=== PATIENT | male | born 1960 | race Caucasian/White ===

== ENCOUNTER 2021-11-09 13:56 | Emergency (ER) | payer OTHER, SELFPAY ==
--- NOTE | ~2021-11-09 | US_ITS ---
EXAMINATION: US carotid duplex BI DATE: 11/09/2021 16:49 INDICATION: Visual disturbance. TECHNIQUE: Grayscale, color Doppler, and pulsed Doppler images of the cervical carotid arteries were obtained. The degree of vessel stenosis is placed in one of the following categories: normal, <50%, 5 0-69%, >=70% but less than near-occlusion, near-occlusion, or total occlusion. Note that percent sten osis relative to normal distal artery lumen diameter is indirectly measured from velocity measurement s as described by Nigel, et al. Radiology 2003; [id number]:[id number]. Notes: Normal: Peak systolic velocity <125 centimeters/sec and no plaque <50%. Peak systolic velocity <125 ( EDV <40; ICA/CCA PSV ratio <2.0; used these factors only a tandem lesions or low cardiac output or co ntralateral disease) 50-69 %: PSV 125-230 (EDV 40-100; ratio 2-4) >= 70% but less than near occlusion: PSV greater than 230 (EDV > 100; ratio> 4.0) Near Occlusion: PSV that is variable; markedly narrowed lumen Occlusion: Absent flow on color/spectral Doppler and no lumen on perez scale. COMPARISON: None. FINDINGS: RIGHT: The right common carotid artery (CCA) peak systolic velocity (PSV) is 89 cm/s. The right internal car otid artery (ICA) PSV is 47 cm/s. The right ICA end-diastolic velocity (EDV) is 12 cm/s. The right IC A/CCA PSV ratio is 0.5. The external carotid artery (ECA) PSV is 97 cm/s. There is antegrade flow in the right vertebral artery. LEFT: The left CCA PSV is 91 cm/s. The left ICA PSV is 76 cm/s. The left ICA EDV is 26 cm/s. The left ICA/C CA PSV ratio is 0.8. The ECA PSV is 58 cm/s. There is antegrade flow in the left vertebral artery. IMPRESSION: 1. Less than 50% stenosis in the right internal carotid artery by sonographic criteria. 2. Less than 50% stenosis in the left internal carotid artery by sonographic criteria. Reviewed, dictated and finalized at location A. IMPRESSION: 1. Less than 50% stenosis in the right internal carotid artery by sonographic nani ruby. 2. Less than 50% stenosis in the left internal carotid artery by sonographic clay granger.
--- NOTE | ~2021-11-09 | CT_ITS ---
EXAMINATION: CT facial & cervical spine wo DATE: 11/09/2021 14:36 INDICATION: head injury TECHNIQUE: Computed tomography (CT) of the maxillofacial region and cervical spine was performed with out intravenous contrast. Automated exposure control and iterative reconstruction technique were empl oyed. The dose-length product was 421.35 mGy-cm. COMPARISON: None FINDINGS: CERVICAL: Counting reference: Craniocervical junction. There are seven cervical type vertebral bodies.. Anatomic Variants: None. Vertebral Body Alignment: Straightening, otherwise intact. Craniocervical junction: Moderate degenerative change. Alignment intact. Osseous structures/fracture: No evidence of a lytic or blastic process in the visualized spine. N o evidence of acute fracture. Cervical soft tissues: The paraspinal soft tissues planes are maintained. Degenerative changes: Severe degenerative disc disease at C5-6 and C6-7, with severe bilateral neural foraminal narrowing and moderate central canal narrowing. Ankylosis at C6-7. FACE: Soft Tissues: No significant superficial soft tissue swelling. Facial bones: No acute fracture. No lytic or blastic process. Eyes: The globes are intact. The soft tissue planes of the orbits are maintained. Paranasal Sinuses: Mild inferior right maxillary mucosal thickening, otherwise the aerated spaces ar e clear. Foreign Bodies: No radiopaque foreign bodies. Other Findings: None. IMPRESSION: No acute fracture or traumatic malalignment in the cervical spine. No acute facial bone fracture. Reviewed, dictated and finalized at location K. IMPRESSION: No acute fracture or traumatic malalignment in the cervical spine. No acute fac ial bone fracture.
--- NOTE | ~2021-11-09 | CT_ITS ---
EXAMINATION: CT brain wo con DATE: 11/09/2021 14:36 INDICATION: head injury . TECHNIQUE: Computed tomography (CT) of the head was performed without intravenous contrast. The mA wa s adjusted according to patient size. Iterative reconstruction technique was employed. The dose-lengt h product was 605.33 mGy-cm. COMPARISON: None FINDINGS: No acute intracranial hemorrhage or extra-axial fluid collection. No hydrocephalus, mass, or herniation. No acute ischemic infarct. Unremarkable dural venous sinus attenuation. No acute osseous abnormality. The aerated spaces are clear. Mild atrophy and chronic white matter change. Atherosclerotic intracranial calcifications. IMPRESSION: No acute intracranial process. Reviewed, dictated and finalized at location K.
[2021-11-09 13:58] VITALS: BP 151/85; PULSE 80; RESP 16; TEMP 36.1; O2SAT 98
--- NOTE | 2021-11-09 14:24 | ED.GENADULT ---
HPI - General Adult General Chief complaint: Eye Problems Stated complaint: blurred vision in left eye Time Seen by Provider: 11/09/21 14:09 History of Present Illness HPI narrative: 61-year-old male presents to the emergency room from his [facility] for further evaluation of blurred vision in his left eye. Patient states he woke up this morning complaining of centralized blurry vision. Patient denies floaters, or loss of peripheral vision. Patient states he was seen at his [facility] [place] office earlier today, and was encouraged to come to the emergency room for further evaluation for neuroimaging. Patient states about a week ago he hit the back of his head behind his left ear. Denies LOC or altered mental status at that time. Patient denies any tinnitus, hearing changes. Patient denies taking any blood thinners. Patient denies any alleviating or aggravating factors of his blurry vision. Related Data Allergies Allergy/AdvReac Type Severity Reaction Status Date / Time No Known Allergies Allergy Mild Verified 11/09/21 14:13 Review of Systems Review of Systems: CONSTITUTIONAL: Denies fever, chills, or sweats. EYES: Reports central vision changes ENT: Denies rhinorrhea, congestion, sore throat, or otalgia. CARDIOVASCULAR: Denies chest pain, palpitations, or edema. RESPIRATORY: Denies cough or dyspnea. GASTROINTESTINAL: Denies abdominal pain, nausea, vomiting, or diarrhea. GENITOURINARY: Denies dysuria or hematuria. SKIN: Denies rash or itching. MUSCULOSKELETAL: Reports skull tenderness over the left mastoid process NEUROLOGIC: Denies headache, numbness, dizziness, or weakness. PSYCHIATRIC: Denies anxiety or depression. [facility] Family History Family History Father Diabetes mellitus Laryngeal cancer Social History Social History Smoking status: Never smoker Second hand tobacco smoke exposure: No Alcohol intake: current Drinks per week: 2 Substance use: never Substance use type: does not use Gender identity (if verbalized by the patient): Male Sexual Orientation (if Verbalized by the Patient): Straight or Heterosexual Spiritual care concerns: No Agree to blood products: Yes Exam Narrative: GENERAL: Well-appearing, well-nourished, and in no acute distress. HEAD: Normocephalic, atraumatic. Tenderness to the left mastoid process, no ecchymosis, no soft tissue swelling, no bony abnormality EYES: PERRLA and EOMI. ENT: Nares clear, no rhinorrhea or epistaxis. Mucous membranes moist. Oropharynx without tonsillar hypertrophy exudate or other lesions. Bilateral TMs pearly perez nonbulging NECK: Supple. No adenopathy or masses. No carotid bruits or JVD CHEST: Clear to auscultation. No respiratory distress. No wheezes rales or rhonchi HEART: Regular rate and rhythm. No murmur heard. Normal peripheral pulses. EXTREMITIES: Normal range of motion. No edema. SKIN: Warm, dry, no rash. NEURO: No focal deficits. Alert and oriented x3. PSYCH: Normal mood and affect. Course Course Emergency Course: 1529: Discussed case with Dr. Thompson, [place]. She is requesting a carotid ultrasound study. Vital Signs Vital signs: Vital Signs Temperature 36.1 C L 11/09/21 13:58 Pulse Rate 80 11/09/21 13:58 Respiratory Rate 16 11/09/21 13:58 Blood Pressure 151/85 H 11/09/21 13:58 Pulse Oximetry 98 11/09/21 13:58 Temperature 36.1 C L 11/09/21 13:58 Pulse Rate 80 11/09/21 13:58 Respiratory Rate 16 11/09/21 13:58 Blood Pressure 151/85 H 11/09/21 13:58 Pulse Oximetry 98 11/09/21 13:58 Medical Decision Making Vital Signs Vital Signs: Vital Signs Temperature 36.1 C L 11/09/21 13:58 Pulse Rate 80 11/09/21 13:58 Respiratory Rate 16 11/09/21 13:58 Blood Pressure 151/85 H 11/09/21 13:58 Pulse Oximetry 98 11/09/21 13:58 Temperature 36.1 C L 11/09
== END 2021-11-09 17:09 | disposition home or self-care (01) ==
PROVIDERS: Emergency Provider Nurse Practitioner Family; PCP Family Medicine Adolescent Medicine
DX: H53.8 Other visual disturbances (principal)
CPT/HCPCS: 70450; 70486; 72125; 93880; 99284

== ENCOUNTER → 2023-01-21 09:25 | Outpatient (CLI) | payer OTHER, SELFPAY ==
--- NOTE | ~2023-01-21 | XR_ITS ---
AP view of the pelvis and AP and lateral views of the left hip Clinical history: Pain Findings: No acute fracture or dislocation is seen. Osseous alignment is anatomic. There is minimal d egenerative spurring at the superolateral acetabular margin. Soft tissues are unremarkable. Impression: Minimal degenerative spurring at superolateral acetabular margin. Reviewed, dictated and finalized at [facility]. Impression: Minimal degenerative spurring at superolateral acetabular margin.
--- NOTE | ~2023-01-21 | XR_ITS ---
AP and lateral views of the left tibia/fibula Clinical History: Injury Findings: No acute fracture or dislocation is seen. Osseous alignment is anatomic. Joint spaces are p reserved without significant erosive or degenerative change. Soft tissues are unremarkable. Impression: Unremarkable left tib-fib radiographs. Reviewed, dictated and finalized at [facility]. Impression: Unremarkable left tib-fib radiographs.
== END ==
PROVIDERS: PCP Nurse Practitioner Family; Visit Provider Nurse Practitioner Family
DX: S86.892A Other injury of other muscle(s) and tendon(s) at lower leg level, left leg, initial encounter (principal); M25.552 Pain in left hip
CPT/HCPCS: 73502; 73590